=== PATIENT | male | born 1950 | race Caucasian/White ===

== ENCOUNTER 2016-07-03 02:32 | Inpatient (IN) | payer SELFPAY ==
[~2016-07-03] VITALS: Ht 175.3 cm; Wt 76.5 kg
[2016-07-03] MEDS ORDERED: ONDANSETRON 2MG/ML, 2ML ONE ×2 (02:47→13:23)
[2016-07-03] MEDS ORDERED: MORPHINE SULFATE 4 MG/ML, 1ML ONE (02:47)
[2016-07-03] MEDS ORDERED: MORPHINE SULFATE 4 MG/ML, 1ML IVPush PRN ×2 (03:00→08:30)
[2016-07-03] MEDS ORDERED: ONDANSETRON 2MG/ML, 2ML IVPush ONE ×2 (03:00→06:00)
[2016-07-03] MEDS ORDERED: SODIUM CHLORIDE FLUSH 10ML SYR IVF ONE (03:30)
[2016-07-03] MEDS ORDERED: SODIUM CHLORIDE 0.9% 1,000ML IVBOLUS ONE (03:30)
[2016-07-03 03:41] LABS: HEMOGLOBIN 14.3 g/dL (13.7-18.0)
[2016-07-03 03:53] LABS: BLOOD UREA NITROGEN 21 mg/dL (7-18)
[2016-07-03 04:51] VITALS: BP 145/84
[2016-07-03 04:57] VITALS: BP 145/84
[2016-07-03] MEDS: MORPHINE SULFATE 4 MG/ML, 1ML IVPush PRN ×2 (05:55→09:51)
[2016-07-03 06:50] VITALS: BP 121/65
[2016-07-03] MEDS ORDERED: ONDANSETRON 2MG/ML, 2ML IVP PRN (08:30)
[2016-07-03] MEDS ORDERED: MAGNESIUM SULFATE PMX 2GM/50ML 50 ML IV ONE (08:30)
[2016-07-03] MEDS ORDERED: BISACODYL 10 MG SUPP PR PRN (08:30)
[2016-07-03] MEDS: LACTATED RINGERS 1,000 ML IV SCH ×2 (09:47→21:53)
[2016-07-03] MEDS ORDERED: VANCOMYCIN 1,000 MG ONE (12:44)
[2016-07-03] MEDS ORDERED: ROPIvacaine/PF 0.5%, 20 ML ONE (12:44)
[2016-07-03] MEDS ORDERED: KETOROLAC 60 MG/2 ML ONE (12:45)
[2016-07-03] MEDS ORDERED: EPINEPHRINE 1 MG/ML, 1ML ONE (12:45)
[2016-07-03] MEDS ORDERED: TRANEXAMIC ACID 100 MG/ML, 10ML ONE (12:45)
[2016-07-03] MEDS ORDERED: SODIUM CHLORIDE 0.9% 50 ML ONE (12:46)
[2016-07-03] MEDS ORDERED: FENTANYL PF 250 MCG/5ML ONE (12:57)
[2016-07-03] MEDS ORDERED: KETAMINE 10 MG/ML, 20ML ONE (12:57)
[2016-07-03] MEDS ORDERED: HYDROmorphone 1 MG/ML, 1ML ONE (12:57)
[2016-07-03] MEDS ORDERED: MIDAZOLAM 1 MG/ML, 2ML ONE (12:57)
[2016-07-03] MEDS ORDERED: OXYcodone 5 MG/5 ML ORAL.SOL UDC PO PRN (13:00)
[2016-07-03] MEDS ORDERED: LABETALOL 5MG/ML, 20ML IV PRN (13:00)
[2016-07-03] MEDS ORDERED: MEPERIDINE/PF 25MG/0.5ML IVPush PRN (13:00)
[2016-07-03] MEDS ORDERED: ACETAMINOPHEN 325 MG TABLET PO PRN (13:00)
[2016-07-03] MEDS ORDERED: HYDROmorphone 1 MG/ML, 1ML IV PRN (13:00)
[2016-07-03] MEDS ORDERED: PROMETHAZINE 25 MG/ML, 1ML IV PRN (13:00)
[2016-07-03] MEDS ORDERED: ONDANSETRON 2MG/ML, 2ML IVPush PRN (13:00)
[2016-07-03] MEDS ORDERED: MIDAZOLAM 1 MG/ML, 2ML IV PRN (13:00)
[2016-07-03] MEDS ORDERED: hydrALAzine 20 MG/ML, 1ML IV PRN (13:00)
[2016-07-03] MEDS ORDERED: ALBUTEROL/IPRATROPIUM 2.5MG/0.5MG, 3 ML NPPB PRN (13:00)
[2016-07-03] MEDS ORDERED: SUCCINYLCHOLINE 20 MG/ML, 10ML ONE (13:23)
[2016-07-03] MEDS ORDERED: NEOSTIGMINE 1 MG/ML, 10ML ONE (13:23)
[2016-07-03] MEDS ORDERED: ROCURONIUM 10 MG/ML ONE (13:23)
[2016-07-03] MEDS ORDERED: PROPOFOL 10 MG/ML, 20ML ONE (13:23)
[2016-07-03] MEDS ORDERED: CEFAZOLIN 1,000 MG ONE (13:23)
[2016-07-03] MEDS ORDERED: GLYCOPYRROLATE 0.2MG/1ML ONE (13:23)
[2016-07-03] MEDS ORDERED: DEXAMETHASONE 4 MG/ML, 1ML ONE (13:23)
[2016-07-03] MEDS ORDERED: EPHEDRINE 50 MG/ML, 1ML ONE (13:23)
[2016-07-03] MEDS: FENTANYL PF 100 MCG/2ML IV PRN ×2 (15:05→15:34)
[2016-07-03] MEDS ORDERED: FENTANYL PF 100 MCG/2ML ONE (15:25)
[2016-07-03] MEDS ORDERED: OXYcodone 5 MG/5 ML ORAL.SOL UDC ONE (15:26)
[2016-07-03] MEDS ORDERED: CEFAZOLIN PMX 1GM/50ML 50 ML IVPB SCH (15:30)
[2016-07-03 19:10] VITALS: BP 122/65
[2016-07-03] MEDS: DOCUSATE 100 MG CAPSULE PO SCH (21:50)
[2016-07-03] MEDS: CEFAZOLIN PMX 1GM/50ML 50 ML IVPB SCH (21:53)
[2016-07-03 23:43] VITALS: BP 121/72
[2016-07-04 04:12] VITALS: BP 125/76
[2016-07-04 05:01] LABS: HEMOGLOBIN 12.1 g/dL (13.7-18.0)
[2016-07-04] MEDS: CEFAZOLIN PMX 1GM/50ML 50 ML IVPB SCH (05:17)
[2016-07-04] MEDS: LACTATED RINGERS 1,000 ML IV SCH (05:18)
[2016-07-04 05:23] LABS: ASPARTATE AMINO TRANSFERASE 20 U/L (15-37); BLOOD UREA NITROGEN 16 mg/dL (7-18)
[2016-07-04 07:11] VITALS: BP 126/76
[2016-07-04] MEDS: DOCUSATE 100 MG CAPSULE PO SCH ×2 (07:54→22:14)
[2016-07-04] MEDS: OXYcodone/APAP 5/325MG TABLET PO PRN ×3 (10:50→22:14)
[2016-07-04] MEDS ORDERED: ERGOCALCIFEROL 50,000 UNIT CAPSULE PO SCH (13:00)
[2016-07-04 14:48] VITALS: BP 125/73
[2016-07-04] MEDS: ASPIRIN 325 MG TABLET EC PO SCH (17:17)
[2016-07-04 20:26] VITALS: BP 118/72
[2016-07-05] MEDS: OXYcodone/APAP 5/325MG TABLET PO PRN ×3 (02:49→13:39)
[2016-07-05 03:02] VITALS: BP 137/81
[2016-07-05 06:18] LABS: HEMOGLOBIN 11.1 g/dL (13.7-18.0)
[2016-07-05] MEDS: ASPIRIN 325 MG TABLET EC PO SCH (06:31)
[2016-07-05 07:30] VITALS: BP 115/69
[2016-07-05] MEDS ORDERED: ASPI-650 PO (09:32)
[2016-07-05] MEDS ORDERED: OXYC1TAB7 PO (09:32)
[2016-07-05] MEDS ORDERED: ERGO500017 PO (09:32)
[2016-07-05] MEDS: DOCUSATE 100 MG CAPSULE PO SCH (10:43)
[2016-07-05 13:35] VITALS: BP 123/82
== END 2016-07-05 14:38 | disposition home or self-care (01) | DRG 470 ==
LOC: ED 04:08 → EDIP 04:10 → 4NOR 04:35 → DCLOUNGE 07-05 14:04
PROVIDERS: ADMIT Internal Medicine
PROC: 0T9B70Z Drainage of Bladder with Drainage Device, Via Natural or Artificial Opening (ICD-10-PCS; 2016-07-03)
PROC: 0SRB02A Replacement of Left Hip Joint with Metal on Polyethylene Synthetic Substitute, Uncemented, Open Approach (ICD-10-PCS; principal; 2016-07-03 14:30)
DX: S72.032A Displaced midcervical fracture of left femur, initial encounter for closed fracture (principal); D72.829 Elevated white blood cell count, unspecified; I45.81 Long QT syndrome; D64.9 Anemia, unspecified; E55.9 Vitamin D deficiency, unspecified; F17.290 Nicotine dependence, other tobacco product, uncomplicated; G89.11 Acute pain due to trauma; W01.0XXA Fall on same level from slipping, tripping and stumbling without subsequent striking against object, initial encounter; Y93.89 Activity, other specified; Y92.89 Other specified places as the place of occurrence of the external cause; Y99.8 Other external cause status; Z90.89 Acquired absence of other organs; Z82.3 Family history of stroke; Z88.0 Allergy status to penicillin
CPT/HCPCS: 36415; 71010; 72170; 80048; 80053; 81003; 82040; 82306; 85025; 93005; 96361; 96374; 96375; C1713; J0171; J0690; J1100; J1170; J1885; J2250; J2405; J2704; J2710; J2795; J3010; J3370; J3490; C1776; J0330; J3475; J7030; J7120